=== PATIENT | female | born 1945 | race Caucasian/White ===

== ENCOUNTER → 2023-06-16 08:53 | Outpatient (REF) | payer MEDICARE, BC, SELFPAY ==
[2023-06-16 10:09] LABS: Hematocrit 42.5 % (37.0-47.0); Hemoglobin 13.3 g/dL (12.0-16.0); Mean Corp Hgb Conc. 31.3 g/dL (33.0-37.0); Mean Corpuscular Hgb 24.2 pg (27.0-31.0); Mean Corpuscular Volume 77.4 fL (81.0-99.0); Mean Platelet Volume 10.6 fL (7.4-10.4); Platelet Count 184 10^3/uL (130-400); Red Blood Cell Count 5.49 10^6/uL (4.20-5.40); Red Cell Dist. Width 15.4 % (11.5-14.5); White Blood Cell Count 7.9 10^3/uL (4.8-10.8)
[2023-06-16 10:20] LABS: Blood Urea Nitrogen 28 mg/dl (7-17); Calcium 9.8 mg/dl (8.4-10.2); Carbon Dioxide 28 mmol/L (22-30); Chloride 104 mmol/L (98-107); Glucose 95 mg/dl (70-99); Potassium 4.2 mmol/L (3.5-5.1); Sodium 137 mmol/L (135-145); eGFR 58.39
== END ==
LOC: SDSPAT 08:53
PROVIDERS: ATTENDING PHYSICIAN Surgery; FAMILY PHYSICIAN Family Medicine
DX: Z01.818 Encounter for other preprocedural examination (principal)
CPT/HCPCS: 36415; 80048; 85027; 93005

== ENCOUNTER 2023-06-22 06:09 | Day surgery (SDC) | payer MEDICARE, BC, SELFPAY ==
[2023-06-16 09:21] VITALS: BMI 38.0
[2023-06-22] VITALS (15 sets, daily range): BP systolic 105–136; BP diastolic 50–71; BMI 38.0
[2023-06-22] MEDS: TYLENOL 1000 MG PO (06:41)
[2023-06-22] MEDS: NORMOSOL-R 1000 IV (06:47)
--- NOTE | 2023-06-22 06:57 | HP.FOC2 ---
Focused History & Physical
Chief Complaint
HPI:
Chief Complaint: Incarcerated local hernia
HPI / Indication for Planned Procedure: 77-year-old female with known chronically incarcerated umbilical/incisional hernia presenting today for scheduled operative correction. Past surgical history notable for open appendectomy as well as
laparoscopic ROSENDO/BSO. No symptoms suggestive of incarceration with strangulation or obstruction.
Relevant Past Medical History: Other (Sleep apnea, hypertension, asthma, hypothyroid, NIDDM, multinodular goiter, COPD, osteoporosis)
Relevant Social History: Tobacco Use (Former)
Relevant Family History: Negative
Relevant Past Surgical History: Positive for (Appendectomy, ROSENDO and BSO)
Review of Systems
Review of Pertinent Systems: All Systems Negative
Medication
See Medication form for detailed medications: Yes
Medication List (including Herbals & OTC):
Vitamin D3 1 tab PO DAILY 06/17/23
albuterol sulfate 90 mcg/actuation aerosol inhaler 1 inh inhalation PRN PRN shortness of breath 06/17/23
budesonide-formoterol HFA 160 mcg-4.5 mcg/actuation aerosol inhaler 2 puff inhalation BID 06/17/23
calcium carbonate 600 mg-vitamin D3 5 mcg (200 unit) tablet 1 tab PO BID 06/17/23
cyanocobalamin (vitamin B-12) 1 tab PO DAILY 06/17/23
ibuprofen 200 mg tablet (Advil) 200 mg PO Q6H PRN pain 06/17/23
iron 1 dose PO DAILY 06/17/23
levothyroxine 50 mcg tablet (Synthroid) 50 mcg PO DAILY 06/17/23
losartan 25 mg tablet 25 mg PO QPM 06/17/23
multivitamin 1 tab PO DAILY 06/17/23
polyethylene glycol 3350 17 gram oral powder packet (Miralax) 17 g PO DAILY 06/17/23
vitamin A 1 tab PO .3 DAYS A WEEK 06/17/23
vitamin E 1 tab PO DAILY 06/17/23
pravastatin 10 mg tablet 10 mg PO DAILY 06/22/23
Medications Reviewed: Yes
Allergies and Reactions
Patient has Allergies: Yes
Noted Allergies and Reactions:
Allergy/AdvReac Type Severity Reaction Status Date / Time
Sulfa (Sulfonamide Allergy Mild Swelling Verified 06/22/23 06:26
Antibiotics)
Pertinent Physical Exam
All Other Systems: Negative
Head/Neck: Normal
Lungs: Normal
Heart: Normal
Abdomen: Other (Chronically incarcerated local hernia, 3 to 4 cm fascial defect)
Extremities: Normal
Neurological: Normal
Diagnosis / Assessment
77-year-old female presenting for operative correction symptomatic, incarcerated umbilical/incisional hernia
Plan / Procedure
Robotic assisted laparoscopic repair incarcerated umbilical/incisional hernia with mesh
Anesthesia/Sedation to be done by Anesthesia Provider: Yes
--- NOTE | 2023-06-22 07:06 | W.SUR.PREOP ---
Pre-Operative Surgical Note
-
I have examined this patient prior to the performance of the scheduled procedure.
The patient's condition is unchanged from the time of the current History and
Physical and the patient is able to undergo the scheduled procedure.
--- NOTE | 2023-06-22 10:19 | W.IMMPOSTOP ---
Addendum entered and electronically signed by Enrique Verdin MD 06/22/23 11:06:
#[id number]
Original Note:
Surgical Immed Post Op Note
-
Primary Surgeon: Lambert
Assisting Surgeon:
Pre-op Diagnosis: Chronically incarcerated umbilical hernia
Post-op Diagnosis: Chronically incarcerated umbilical hernia - 4 cm
Procedure Performed: Robotic assisted laparoscopic repair incarcerated umbilical hernia with mesh (IPOM +, Ventralight ST 15 cm round)
Robotic assisted laparoscopic partial omentectomy
Anesthesia Type: GETA +0.25% Marcaine
Specimen / Cultures: None
Estimated Blood Loss: 20 mL
Complications: None immediate
Operative Findings: Large chronically incarcerated umbilical hernia containing omentum. Due to significant thinning of omentum from chronic incarceration partial omentectomy of portions of omentum that have been incarcerated. Umbilical hernia
defect just over 4 cm maximal length. Fascial defect closed with #[address] PDS strata fix[address] Ventralight ST 15 cm round mesh reinforcement, IPOM placement.
Updated family postop in waiting area
[2023-06-22] MEDS: NSS 1000 IV ×2 (10:46→21:00)
[2023-06-22] MEDS: DILAUDID 0.25 MG IV ×2 (11:01→11:25)
--- NOTE | 2023-06-22 13:40 | PTCARENOTE ---
Patient received from PACU in bed; Surgical site assessed with ASSEMBLY TECHNICIAN; Incision below umbilicus with gauze and tegaderm - C/D/I; Lap sites BARBER with surgical adhesive; IVF infusing; Patient oriented to room and unit; Call serrano within reach; Bed in
lowest position, side rails up, wheels locked; Assessment ongoing
--- NOTE | 2023-06-22 15:31 | W.PN.UPDATE ---
Update Note
Progress Note Update
Patient seen and evaluated at bedside with family present given concern for redness of right hand
Petechiae to the dorsal aspect of the right hand, no pain, or peripheral neuropathy. Mild edema to hand into 2nd ant 3rd digit primarily. Movement and sensation normal with strong pulses.
Suspect this developed secondary to blood pressure cuff which was placed on the right arm intraoperatively. Cuff removed, skin intact. No ecchymosis/hematoma noted.
Will monitor with serial exams
[2023-06-22] MEDS: DILAUDID 0.5 MG IV ×2 (16:27→22:15)
[2023-06-22] MEDS: LOVENOX 40 MG SC (17:11)
[2023-06-22] MEDS: COZAAR 25 MG PO (17:11)
[2023-06-22] MEDS: SYMBICORT 160/4.5 MCG INHALER 2 PUFF INH (19:26)
[2023-06-22] MEDS: ProAIR HFA INHALER 2 PUFF INH (22:53)
[2023-06-23 03:25] VITALS: BP 105/50
[2023-06-23] MEDS: SYNTHROID 50 MCG PO (06:29)
[2023-06-23] MEDS: NSS 1000 IV (06:33)
[2023-06-23 07:09] LABS: Hepatitis C Antibody Negative (Negative)
[2023-06-23 07:25] VITALS: BP 145/62
[2023-06-23] MEDS: SYMBICORT 160/4.5 MCG INHALER 2 PUFF INH (07:25)
[2023-06-23] MEDS: ProAIR HFA INHALER 2 PUFF INH (07:28)
--- NOTE | 2023-06-23 07:50 | W.PN.GS2 ---
Today's Communication / Plan
-
-- Regular diet
-- Pain control: Tylenol, Tramadol, can trial Toradol if issues with nausea and narcotics will hold for now given age
-- HLIV
-- Home medications ordered
-- OOB/ambulate
-- DC today pending progression
Assessment / Plan
-
Patient is a 77 yo F POD#1 s/p RAL umbilical hernia repair with IPOM Ventralight ST 15 cm round mesh
Recovering well. No postoperative concerns.
-- Regular diet
-- Pain control: Tylenol, Tramadol, can trial Toradol if issues with nausea and narcotics will hold for now given age
-- HLIV
-- Home medications ordered
-- Lovenox for DVT
-- OOB/ambulate
-- DC today pending progression
Subjective Data
-
Date of Service: June 23, 2023
No major complaints. Pain overall well-controlled, does report some abdominal soreness which is improved with Tylenol. Issues with nausea yesterday afternoon postoperatively, symptoms have resolved and denies any currently. Tolerating full's.
Passing flatus, no BM. No chest pain or shortness of breath. Minimal ambulation. Voiding.
Objective Data
-
Intake and Output
06/22/23 06/23/23 06/24/23
06:59 06:59 06:59
Intake Total 1375 / 1375
Output Total 450 / 450
Balance 925 / 925
Intake:
Oral fluids 600 / 600
IV fluids (Total) 775 / 775
Nss 1,000 ml @ 100 mls/hr IV . 175 / 175
Q10H ANTOINETTE Rx#:[id number]
normosol 100 / 100
Output:
Urine, Voided 450 / 450
Other:
Number of approximated MODERATE 1
amounts of urine
Vital Signs
Temp Pulse Resp BP Pulse Ox
97.5 F 76 16 105/50 96
06/23/23 03:25 06/23/23 07:31 06/23/23 07:31 06/23/23 03:25 06/23/23 07:31
Physical Exam
-
Gen: NAD
Abd: obese, soft, minimal tenderness, non-peritoneal, incisions c/d/i - no erythema, ecchymosis or drainage
[2023-06-23] MEDS: ULTRAM 50 MG PO ×2 (08:02→14:30)
--- NOTE | 2023-06-23 10:57 | CM ---
Initial Assessment completed with patient who lives alone in a 2nd floor condo in an elevator building with ramp to enter. NEUROLOGY PHYSICIAN patient was independent and drove. She has a RW, 2 SPC's, 2 quad canes, SC, shower bars and a nebulizer machine. HC POA
is in chart. Daughter and grand-daughter are support system. No services in the home, no history of psychiatric hospitalizations. Pharmacy is [facility] in [place] and PCP is Dr. Goff. Discharge Plan of Care: [facility] with (preference).
[2023-06-23] MEDS: TYLENOL 650 MG PO (11:22)
[2023-06-23 11:25] VITALS: BP 117/60
--- NOTE | 2023-06-23 14:12 | W.PN.SURGUPD ---
Surgical Update
Surgical Update
pt seen in followup, daughter at bedside.
post op pain controlled on tramadol
initial post op nausea resolved
ate a light lunch
voiding
AFVSS
ABD: soft, ND, TTP centrally and at surgical sites as expected
A/P: doing well post op
stable for d/c home
instructions reviewed with pt and daughter, tramadol script sent
--- NOTE | 2023-06-23 14:14 | W.DS.TRANS ---
DC Summary - [facility] [employer]
-
Discharge Instructions:
Discharge Diagnosis/Procedures Incarcerated umbilical/ventral hernia; robotic
assisted laparoscopic repair umbilical/ventral
hernia with mesh
Diet As tolerated,Regular
Additional Diets Smaller meals initially after surgery as
abdominal bloating and distention are common for
the first 3-5 days
Activity No strenuous activity
Additional Activity No lifting over 20 pounds for 4 to 6 weeks
postop
Driving Restrictions No driving for 1 week
Wound Care Glue at surgical sites typically 2 to 3 weeks
Instructions:
Stand-Alone Forms:
Changes to Home Medications: No
Discharge Medications:
DC Medications w/original date entered in [employer]
Vitamin D3 1 tab PO DAILY 06/17/23
albuterol sulfate 90 mcg/actuation aerosol inhaler 1 inh inhalation PRN PRN shortness of breath 06/17/23
budesonide-formoterol HFA 160 mcg-4.5 mcg/actuation aerosol inhaler 2 puff inhalation BID 06/17/23
calcium carbonate 600 mg-vitamin D3 5 mcg (200 unit) tablet 1 tab PO BID 06/17/23
cyanocobalamin (vitamin B-12) 1 tab PO DAILY 06/17/23
ibuprofen 200 mg tablet (Advil) 200 mg PO Q6H PRN pain 06/17/23
iron 1 dose PO DAILY 06/17/23
levothyroxine 50 mcg tablet (Synthroid) 50 mcg PO DAILY 06/17/23
losartan 25 mg tablet 25 mg PO QPM 06/17/23
multivitamin 1 tab PO DAILY 06/17/23
polyethylene glycol 3350 17 gram oral powder packet (Miralax) 17 g PO DAILY 06/17/23
vitamin A 1 tab PO .3 DAYS A WEEK 06/17/23
vitamin E 1 tab PO DAILY 06/17/23
pravastatin 10 mg tablet 10 mg PO DAILY 06/22/23
tramadol 50 mg tablet 50 mg PO Q6HPRN PRN severe pain/breakthrough pain #20 tabs 06/23/23
Home Medication Changes
Pending Results: No
--- NOTE | 2023-06-23 14:26 | CM ---
Patient has been medically cleared for discharge to home with [facility] services. Patient has arranged for transport home.
[2023-06-23 14:33] VITALS: BP 122/67
== END 2023-06-23 15:29 | disposition home or self-care (01) ==
LOC: SDS 06:09
PROVIDERS: ATTENDING PHYSICIAN Surgery
DX: K42.0 Umbilical hernia with obstruction, without gangrene (principal)
CPT/HCPCS: 49594; 86803; 94640; C1781

== ENCOUNTER → 2023-08-22 09:29 | Outpatient (REF) | payer MEDICARE, BC, SELFPAY | LOC: WDC 09:29 | PROVIDERS: ATTENDING PHYSICIAN Family Medicine | DX: Z12.31 Encounter for screening mammogram for malignant neoplasm of breast (principal) | CPT/HCPCS: 77063; 77067 ==

== ENCOUNTER → 2024-05-13 12:53 | Outpatient (REF) | payer MEDICARE, BC, SELFPAY | LOC: HWRAD 12:53 | PROVIDERS: ATTENDING PHYSICIAN Family Medicine; REFERRING PHYSICIAN Internal Medicine Endocrinology, Diabetes & Metabolism | DX: M81.0 Age-related osteoporosis without current pathological fracture (principal); E03.9 Hypothyroidism, unspecified | CPT/HCPCS: 76536; 77080 ==

== ENCOUNTER → 2024-09-20 12:49 | Outpatient (REF) | payer MEDICARE, BC, SELFPAY | LOC: HWRCS 12:49 | PROVIDERS: ATTENDING PHYSICIAN Internal Medicine Cardiovascular Disease; FAMILY PHYSICIAN Family Medicine | DX: I10 Essential (primary) hypertension (principal); R00.0 Tachycardia, unspecified; R00.2 Palpitations | CPT/HCPCS: 93306 ==

== ENCOUNTER → 2024-10-27 08:17 | Outpatient (REF) | payer MEDICARE, BC, SELFPAY | LOC: WDC 08:17 | PROVIDERS: ATTENDING PHYSICIAN Family Medicine | DX: Z12.31 Encounter for screening mammogram for malignant neoplasm of breast (principal) | CPT/HCPCS: 77063; 77067 ==

== ENCOUNTER → 2024-12-05 12:57 | Outpatient (REF) | payer MEDICARE, BC, SELFPAY | LOC: REG 12:57 | PROVIDERS: ATTENDING PHYSICIAN Nurse Practitioner Family; FAMILY PHYSICIAN Family Medicine | DX: R50.9 Fever, unspecified (principal) | CPT/HCPCS: 71046 ==